=== PATIENT | female | born 1950 | race Caucasian/White ===

== ENCOUNTER 2016-11-07 07:23 | Inpatient (IN) ==
--- NOTE | 2016-11-06 20:53 | Discharge Summary ---
<Amber Trimble - Last Filed: 11/06/16 20:50> Date of Encounter: 11/06/16 - Discharge Diagnosis (1) Left rotator cuff tear arthropathy Priority: Primary Status: Acute - Discharge Medications Home Medications: Ergocalciferol (VITAMIN D2) [Vitamin D] 400 unit PO DAILY 03/09/16 [History] Vitamin E Acid Succinate [Vitamin E] 400 units PO DAILY 03/09/16 [History] OxyCODONE Immed Rel [Roxicodone 5 MG] 5 - 10 mg PO Q6HR PRN #40 tablet 11/06/16 [Rx] Cyanocobalamin (Vitamin B-12) [Vitamin B-12] 1,000 mcg SL DAILY 11/07/16 [ History] Naproxen Sodium [Aleve] 220 mg PO Q12H PRN 11/07/16 [History] Allergies/Adverse Reactions: Allergies No Known Allergies Allergy (Verified 11/07/16 08:15) Primary care physician: Fina Bridges CNP - Patient Status Disposition: Home, Self-Care Condition: Good - Discharge Instructions Follow Up With: Fina Bridges CNP [Primary Care Provider] - - Hospital Course Hospital course: Ms. Wray is a 66 year old female - Time Spent with Patient Total time spent providing and/or coordinating discharge services: <Ajay Nelson - Last Filed: 11/07/16 17:56> Date of Encounter: 11/07/16 Time of Encounter: 17:56 - Discharge Diagnosis (1) Left rotator cuff tear arthropathy Priority: Primary Status: Acute (2) Hyperlipidemia Priority: Secondary Status: Chronic Qualifiers: Hyperlipidemia type: unspecified Qualified Code(s): E78.5 - Hyperlipidemia , unspecified Primary care physician: Fina Bridges CNP - Patient Status Functional capacity at discharge: independent ambulation Overall status at discharge: patient is progressing back to baseline - Hospital Course Hospital course: Ms. Wray is a 66 year old female did well dc today - Time Spent with Patient Total time spent providing and/or coordinating discharge services:
--- NOTE | 2016-11-07 07:50 | History & Physical Report ---
Date of Encounter: 11/07/16 Time of Encounter: 07:50 24 Hour HP Update - Instructions Instructions: If the History and Physical is less than 30 days old and was completed prior to A.M. admission and or procedure and has NOT been updated on calendar day of procedure please complete this update prior to performing procedure. - Update Patient reports changes in Medical Condition: No Changes in assessment/condition: No Changes in Medication: No Preop tests/diagnostics Reviewed: Yes Surgery Remains Indicated: Yes Consent for Planned Operative Procedure(s) Verified: Yes - Pre-Operative Checklist Preoperative Checklist Indicated: No Prophylactic Antibiotic Ordered: Yes Is VTE Prophylaxis Indicated?: Yes
[2016-11-07] MEDS ORDERED: CeFAZolin Pre 2,000 MG/100 ML 2,000 MG/100 ML BAG IVPB ONE (07:55)
--- NOTE | 2016-11-07 08:00 | Anesthesia Evaluation PreOp ---
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: Other (anxiety) Other Medical History: Denies Any Significant HX Anesthesia History: No Prior Anesthetic Complications, Past Anesthesia (c/s x2, l shoulder) Alcohol Use: none Drug use: none Medications and Allergies Aspirin 81 mg PO DAILY 03/09/16 [History] Ergocalciferol (VITAMIN D2) [Vitamin D] 400 unit PO DAILY 03/09/16 [History] Meloxicam [Mobic] 15 mg PO DAILY PRN 03/09/16 [History] Vitamin E Acid Succinate [Vitamin E] 400 units PO DAILY 03/09/16 [History] OxyCODONE Immed Rel [Roxicodone 5 MG] 5 - 10 mg PO Q6HR PRN #40 tablet 11/06/16 [Rx] Allergies No Known Allergies Allergy (Verified 03/09/16 09:59) - Meds/Allergy Pre-op Review Medications Reviewed: Yes Allergies Reviewed: Yes Beta Blockers on Current Med List: No Anesthesia Results - Labs Laboratory Tests 03/09/16 10/24/16 10/24/16 10:16 07:59 07:59 Hgb 14.0 POC Hgb 13.3 Plt Count 199 PT 11.2 INR 1.0 APTT 34.5 Sodium Potassium Creatinine 10/24/16 07:59 Hgb POC Hgb Plt Count PT INR APTT Sodium 142 Potassium 4.6 H Creatinine 0.88 Anesthesia Exam O2 Sat Height 1.65 m Height 1.65 m Weight 79.379 kg Weight 79.379 kg O2 Sat by Pulse Oximetry 94 Vital Signs Temp Pulse Resp BP Pulse Ox 98.4 F 63 18 150/76 94 L 11/07/16 07:55 11/07/16 07:55 11/07/16 07:55 11/07/16 07:55 11/07/16 07:55 Height: 1.65 Weight: 79 NPO (# of Hours): >8 - HEENT Pupil (Motor): Pupils equal, EOMI Mallampati: IV Teeth: Normal Oral Opening: Greater than 3 (good underbite, recessed mandible) - [employer]ING SERVICES CLERK LOC: Oriented [employer]IENT [employer] SERVICES CLERK Motor: Normal RUE, Normal LUE, Normal RLE, Normal LLE, Normal Face [employer]IENT [employer]ING SERVICES CLERK Sensory: Normal: RUE, LUE, RLE, LLE, Face - Cardiac Rhythm: Regular Murmur: None - Pulmonary Breath Sounds: bilateral Clear Respiratory Effort: Symmetrical Anesthesia Assess/Plan ASA Score: 2 (ELIER in room, MP IV) Modified [place] Scale for Level of Consciousness: Cooperative, oriented, and tranquil Anesthetic Plan: General, Regional Monitoring Plan: Standard Monitors Recovery Plan: PACU
[2016-11-07] MEDS: Ringers Solution, Lactated 1,000 ML IVC SCH ×2 (08:07→11:10)
[2016-11-07] MEDS ORDERED: *HR* Succinylcholine 200 MG/10 ML VIAL IVP ONE (09:26)
[2016-11-07] MEDS ORDERED: Ondansetron 4 MG/2 ML VIAL ONE (09:26)
[2016-11-07] MEDS ORDERED: *HR* FentaNYL (PF) 100 MCG/2 ML VIAL ONE (09:26)
[2016-11-07] MEDS ORDERED: Lidocaine -MPF 2% 2 ML VIAL ONE (09:26)
[2016-11-07] MEDS ORDERED: Lidocaine -MPF 4% 5 ML AMPUL ONE (09:26)
[2016-11-07] MEDS ORDERED: Dexamethasone 4 MG/ML VIAL ONE (09:26)
[2016-11-07] MEDS ORDERED: *HR* Propofol 200 MG/20 ML VIAL IVP ONE (09:27)
[2016-11-07] MEDS ORDERED: *HR* Midazolam HCl 2 MG/2 ML VIAL ONE (09:27)
[2016-11-07] MEDS ORDERED: ROPIVACAINE HCL/PF 0.5% 30 ML VIAL ONE (09:29)
[2016-11-07] MEDS ORDERED: Bupivacaine/Clonidine Syringe 1 EACH SYRINGE ONE (09:30)
--- NOTE | 2016-11-07 10:02 | Anesthesia Procedures ---
Date of Encounter: 11/07/16 Time of Encounter: 10:00 Procedures: Anesthesia - Nerve Block Procedure Date: 11/07/16 Time: 10:00 Allergies/Adv Reactions: nka Surgical Procedure: left reverse total shoulder Checklist: Correct Patient Identifier, Correct procedure, History checked Correct side: Left Blood Thinner: No Monitor Applied: EKG, BP, Pulse Oximetry Supplemental Oxygen via Nasal Cannula (L/min): 2 Sedation: Versed (mg): 2 Sedation: Fentanyl (mcg): 100 Indication: Post Op Analgesia Pre-op Neuro Deficits: No Block Type: Interscalene, Other (intermediate cervical plexus) Catheter placed: No Sterile Technique: Yes Ultrasound used: Yes Anatomy identified: Yes Visual spread of Local: Yes Neuro Stimulation: No Blood on Needle Aspiration: No Smooth Injection of Local: Yes Pain with Injection of Local: No Prep: Chlorhexadine Needle: 22 x 50 mm Stimuplex Local: Ropivacaine (0.5%), Other (10mg decadron) Volume (cc): 30 Number of Attempts: 1 (20mL IS + 10mL ICP) Complications: None/effective block Vitals: Vital Signs/O2 Sat/Glucose, Most Recent Temp Pulse Resp BP Pulse Ox 98.4 F 57 18 142/72 99 11/07/16 07:55 11/07/16 09:35 11/07/16 07:55 11/07/16 09:35 11/07/16 09:35 s
[2016-11-07] MEDS ORDERED: *HR* Labetalol 100 MG/20 ML MDV IVP PRN (10:35)
[2016-11-07] MEDS ORDERED: *HR* Promethazine 25 MG/ML VIAL IVP PRN (10:35)
[2016-11-07] MEDS ORDERED: *HR* HYDROmorphone (PF) 1 MG/ML SYRINGE IVP PRN ×2 (10:35→13:17)
--- NOTE | 2016-11-07 11:00 | Orthopedic Operative Note ---
Date of procedure: 11/07/16 Pre-op diagnosis: left shoulder cuff tear arthropathy Post-op diagnosis: same Procedure: Procedure: left Total Shoulder Replacment Reverse, Estimated blood loss: 100 cc Hardware:Arthrex small glenoid baseplate, 2 4.5 screws. 1 6.5 screw, 36 lateral glenosphere, 6 humeral stem, poly insert 3 Exam Under anesthesia:Full motion and no instability Procedural Notes:irreparable tear of rotator cuff tear Operative procedure: The patient was brought to the operating room and placed on the operating room table. After general anesthesia was administered the operative shoulder was examined. Findings were noted. The patient was placed in the modified beachchair position. All pressure points were padded appropriately. And the head was stabilized in the neutral position. The operative extremity was prepped and draped in the sterile surgical fashion. The patient received IV antibiotics prior to skin incision. A standard deltopectoral approach was made to the operative shoulder. Incision was made to the skin and subcutaneous tissue,hemo stasis was obtained with Bovie cautery. Using careful blunt dissection the cephalic vein was identified and mobilized medially. The deltopectoral interval was developed and the clavipectoral fascia was incised. The subscap was released off the lesser tuberosity and tagged with #2 FiberWire suture. The humerus was dislocated patient noted to have irreparable tear supraspinatus tendon, and the humeral cut was made along the anatomic neck. Anterior and posterior Bankart retractors were placed to expose the glenoid. The glenoid guide was seated and the centering hole was made. It was reamed with the appropriate small reamer. The small baseplate was seated and secured with (2) 4.5 screws and one 6.5 screw. The baseplate was irrigated and dried and the 36 lateral Glenosphere was seated and secured with the Davis taper. The Davis taper was tested and found to be secure the humerus was redislocated and prepared with the diaphyseal reamers, followed by a broaching process up to the appropriate size 6 in the patient's anatomic version. The metaphyseal reamer was then utilized. Trial reduction found the shoulder to be relocatable. Trial components were removed and drill holes were placed in the lesser tuberosity. The subscapularis was irreparable. The appropriate 6 stem was impacted in place in the patient's anatomic version. Trial reduction found the shoulder to be relocatable and stable with the appropriate 3 . Trial component was removed and the real 3 was seated and secured the shoulder was reduced. The shoulder had excellent motion and excellent stability and no evidence of dislocation. The deep tissue was irrigated with pulse irrigation. The deltopectoral interval was closed with a running #1 PDS suture, subcutaneous tissue was irrigated and closed with 0 PDS suture, the skin was closed with Dermabond. The patient was placed in a sterile dressing, abduction brace and extubated. The patient was then transferred to the recovery room in stable condition. Anesthesia: MARLENE Surgeon: Ajay Nelson Bilingual Medical Receptionist: Amber Trimble Condition: stable Disposition: PACU
[2016-11-07 11:35] LABS: Hemoglobin 13.1 g/dL (11.5-15.4)
--- NOTE | 2016-11-07 11:53 | Anesthesia Evaluation Post Op ---
Date of Encounter: 11/07/16 Time of Encounter: 11:52 - Vital Signs Vital Signs: Vital Signs/O2 Sat/Glucose, Most Recent Temp Pulse Resp BP Pulse Ox 97.8 F 77 18 164/93 93 L 11/07/16 11:40 11/07/16 11:40 11/07/16 11:40 11/07/16 11:40 11/07/16 11:40 - Lungs Lungs: Clear Ascult./Percussion - Airway Airway: Non-obstructed - Cardiovascular Regular Rate - Mental Status Mental Status: Alert & Oriented, Answers Appropriately - Pain Pain Scale: 1 (mild discomfort near ICB, denies need for a block) Pain Scale used: Numeric (1 - 10) - Nausea Vomiting Nausea Vomiting: Not Present - Hydration Hydration: NPO, Tolerates oral liquids - Discharge PostOp Status: Transfer Patient to floor
[2016-11-07] MEDS ORDERED: Sennosides 8.6 MG TABLET PO PRN (13:17)
[2016-11-07] MEDS ORDERED: *HR* OxyCODONE Immed Rel 5 MG TABLET PO PRN ×2 (13:17)
[2016-11-07] MEDS ORDERED: Naloxone 0.4 MG/ML INJ IVP PRN (13:17)
[2016-11-07] MEDS ORDERED: MOM Conc 10 ML UD.LIQ PO PRN (13:17)
[2016-11-07] MEDS ORDERED: Ondansetron 4 MG/2 ML VIAL IVP PRN (13:17)
[2016-11-07] MEDS ORDERED: Ringers Solution, Lactated 1,000 ML IVC SCH (13:17)
[2016-11-07] MEDS ORDERED: Temazepam 15 MG CAPSULE PO PRN (13:17)
[2016-11-07] MEDS ORDERED: Acetaminophen 325 MG TABLET PO PRN (13:17)
[2016-11-07 15:22] VITALS: BP 152/93
[2016-11-07] MEDS ORDERED: ceFAZolin 2,000 MG in D5% in Water 100 ML IVPB SCH (18:00)
[2016-11-07] MEDS ORDERED: *HR* Enoxaparin 30 MG/0.3 ML SYRINGE SQ SCH ×2 (18:00)
[2016-11-08] MEDS ORDERED: Cholecalciferol (D-3) 1,000 UNIT TABLET PO SCH (09:00)
[2016-11-08] MEDS ORDERED: Cyanocobalamin (B-12) 1,000 MCG TABLET PO SCH (09:00)
== END 2016-11-07 19:15 | disposition home or self-care (01) | DRG 483 ==
LOC: SAMDAY 07:23 → 3NENU 12:13
PROVIDERS: ADMIT Orthopaedic Surgery; ATTEND Orthopaedic Surgery